=== PATIENT | female | born 1955 | race Caucasian/White ===

== ENCOUNTER 2016-05-25 04:08 | Emergency (ER) | payer SELFPAY ==
[~2016-05-25] VITALS: Ht 162.6 cm; Wt 65.9 kg
[2016-05-25 05:30] VITALS: BP 144/86
== END 2016-05-25 06:15 | disposition left against medical advice (07) ==
LOC: EME 04:08 → EDBD 04:08 → EME 06:15
DX: R07.9 Chest pain, unspecified (principal); R41.0 Disorientation, unspecified; R06.02 Shortness of breath
CPT/HCPCS: 80048; 84484; 85027; 85610; 85730; 99281; 99283